=== PATIENT | female | born 1975 | race Caucasian/White ===

== ENCOUNTER 2018-03-26 11:35 | Inpatient (IN) | payer MEDICAID ==
[2018-03-26 11:57] LABS: ADD MAN DIFF? NO
[2018-03-26 12:05] LABS: WHITE BLOOD COUNT 9.6 10^3/ul (4.8-10.8)
[2018-03-26 12:06] LABS: ABNORMAL IP MESSAGE 1; BASOPHILS % 0.4 % (0.0-2.0); EOSINOPHILS # 0.2 10^3/ul (0.0-0.5); EOSINOPHILS % 2.5 % (0.0-7.0); HEMATOCRIT 31.3 % (37.0-47.0); HEMOGLOBIN 9.2 g/dl (12.0-16.0); LYMPHOCYTES # 1.2 10^3/ul (0.8-2.9); LYMPHOCYTES % 12.9 % (15.0-51.0); MEAN CORPUSCULAR HEMOGLOBIN 22.7 pg (29.0-33.0); MEAN CORPUSCULAR HGB CONC 29.4 g/dl (32.0-37.0); MEAN CORPUSCULAR VOLUME 77.1 fl (82.0-101.0); MEAN PLATELET VOLUME 9.9 fl (7.4-10.4); MONOCYTE # 0.8 10^3/ul (0.3-0.9); MONOCYTES % 8.3 % (0.0-11.0); NEUTROPHIL # 7.3 10^3/ul (1.6-7.5); NEUTROPHILS % 75.4 % (39.0-77.0); PLATELET COUNT 258 10^3/UL (140-415); RED BLOOD COUNT 4.06 10^6/ul (4.20-5.40); RED CELL DISTRIBUTION WIDTH 33.4 % (11.5-14.5)
[2018-03-26 12:11] LABS: POSITIVE DIFF @See below
[2018-03-26 12:22] LABS: INR 1.04; PROTIME 13.7 Sec (11.9-14.9); PT RATIO 1.1
[2018-03-26 12:23] LABS: PARTIAL THROMBOPLASTIN TIME 37.6 Sec (23.0-35.0)
[2018-03-26 12:26] LABS: LACTIC ACID 3.1 mmol/L (0.5-2.0)
[2018-03-26 12:31] LABS: ANION GAP 10 (8-16); CARBON DIOXIDE 29 mmol/L (21-31); CHLORIDE 101 mmol/L (97-110); CREATININE 0.44 mg/dl (0.44-1.00); GLUCOSE 98 mg/dl (70-220); POTASSIUM 3.8 mmol/L (3.5-5.1); SODIUM 136 mmol/L (135-144)
[2018-03-26 12:42] LABS: TROPONIN-I < 0.012 ng/ml (0.000-0.120)
[2018-03-26 12:47] LABS: BLOOD UREA NITROGEN 8 mg/dl (7-20)
[2018-03-26] MEDS ORDERED: ACETAMINOPHEN 325 MG TAB PO ×2 (13:30→14:00)
[2018-03-26] MEDS ORDERED: ONDANSETRON 4 MG INJ IV (13:30)
[2018-03-26] MEDS: CEFEPIME 2GM/50 ML (PMX) 50 ML IVPB ×2 (13:37→22:00)
[2018-03-26] MEDS ORDERED: DOCUSATE SODIUM 100 MG CAP PO (14:00)
[2018-03-26] MEDS ORDERED: VANCOMYCIN IV PER PHARMACY XX (14:00)
[2018-03-26] MEDS ORDERED: NACL 0.9% 3 ML SYG IV (14:00)
[2018-03-26] MEDS ORDERED: MAGNESIUM HYDROXIDE 30ML CUP PO (14:00)
[2018-03-26] MEDS ORDERED: BISACODYL 10 MG SUPP PR (14:00)
[2018-03-26] MEDS ORDERED: ACETAMINOPHEN 650 MG SUPP PR (14:00)
[2018-03-26] MEDS: IOHEXOL 100 ML (14:02)
[2018-03-26] MEDS: SOD CHLORIDE 0.9% 100 ML (14:03)
[2018-03-26] MEDS: IOHEXOL 350MG/ML 50 ML BTL (14:04)
[2018-03-26] MEDS: VANCOMYCIN 1 GM (PMX) 250 ML IVPB (14:20)
[2018-03-26 14:29] LABS: LACTIC ACID 1.8 mmol/L (0.5-2.0)
[2018-03-26] MEDS ORDERED: HEPARIN 25000 UNITS/250 ML 250 ML IV (15:30)
[2018-03-26] MEDS: HEPARIN 1000 UNITS/ML 10 ML INJ IV ×2 (16:08→18:33)
[2018-03-26] MEDS: SOD CHLORIDE 0.9% 1,000 ML IV (16:13)
[2018-03-26 16:24] LABS: ADD MAN DIFF? NO
[2018-03-26 16:27] LABS: WHITE BLOOD COUNT 9.8 10^3/ul (4.8-10.8)
[2018-03-26 16:27] LABS: ABNORMAL IP MESSAGE 1; BASOPHILS % 0.4 % (0.0-2.0); EOSINOPHILS # 0.2 10^3/ul (0.0-0.5); EOSINOPHILS % 2.5 % (0.0-7.0); HEMATOCRIT 31.2 % (37.0-47.0); LYMPHOCYTES # 1.2 10^3/ul (0.8-2.9); LYMPHOCYTES % 12.5 % (15.0-51.0); MEAN CORPUSCULAR HEMOGLOBIN 22.6 pg (29.0-33.0); MEAN CORPUSCULAR HGB CONC 28.8 g/dl (32.0-37.0); MEAN CORPUSCULAR VOLUME 78.4 fl (82.0-101.0); MEAN PLATELET VOLUME 10.3 fl (7.4-10.4); MONOCYTE # 0.8 10^3/ul (0.3-0.9); MONOCYTES % 8.4 % (0.0-11.0); NEUTROPHIL # 7.4 10^3/ul (1.6-7.5); PLATELET COUNT 234 10^3/UL (140-415); RED BLOOD COUNT 3.98 10^6/ul (4.20-5.40); RED CELL DISTRIBUTION WIDTH 33.7 % (11.5-14.5)
[2018-03-26 16:37] LABS: POSITIVE DIFF @See below
[2018-03-26] MEDS: HEPARIN 25000 UNITS/250 ML 250 ML IV ×2 (16:38→18:31)
[2018-03-26 16:46] LABS: INR 1.04; PROTIME 13.7 Sec (11.9-14.9); PT RATIO 1.1
[2018-03-26 16:47] LABS: PARTIAL THROMBOPLASTIN TIME 32.8 Sec (23.0-35.0)
[2018-03-26 17:04] LABS: LACTIC ACID 2.5 mmol/L (0.5-2.0)
[2018-03-26] MEDS: VANCOMYCIN 1 GM 250 ML IVPB (18:48)
[2018-03-26 22:17] LABS: ADD UMIC NO; UR ASCORBIC ACID NEGATIVE (NEGATIVE); UR BILIRUBIN (Dip) NEGATIVE (NEGATIVE); UR BLOOD (Dip) NEGATIVE (NEGATIVE); UR CLARITY CLEAR (CLEAR); UR COLOR YELLOW (YELLOW); UR GLUCOSE (Dip) NEGATIVE (NEGATIVE); UR KETONES (Dip) NEGATIVE (NEGATIVE); UR LEUKOCYTE ESTERASE (Dip) NEGATIVE Leu/ul (NEGATIVE); UR NITRITE (Dip) NEGATIVE (NEGATIVE); UR SPECIFIC GRAVITY (Dip) 1.034 (1.003-1.030); UR TOTAL PROTEIN (Dip) NEGATIVE (NEGATIVE); UR UROBILINOGEN (Dip) NEGATIVE (NEGATIVE)
[2018-03-26 22:26] LABS: LACTIC ACID 1.7 mmol/L (0.5-2.0)
[2018-03-27 01:20] LABS: LACTIC ACID 1.8 mmol/L (0.5-2.0)
[2018-03-27] MEDS: VANCOMYCIN 1.5 GM in SOD CHLORIDE 0.9% 250 ML IVPB (01:38)
[2018-03-27 01:43] LABS: PARTIAL THROMBOPLASTIN TIME > 180.0 Sec (23.0-35.0)
[2018-03-27] MEDS: HEPARIN 25000 UNITS/250 ML 250 ML IV ×3 (01:56→21:27)
[2018-03-27 04:28] LABS: PARTIAL THROMBOPLASTIN TIME 115.1 Sec (23.0-35.0)
[2018-03-27] MEDS: PANTOPRAZOLE 40 MG INJ IV (06:52)
[2018-03-27] MEDS: CEFEPIME 2GM/50 ML (PMX) 50 ML IVPB (06:53)
[2018-03-27 07:11] LABS: ADD MAN DIFF? NO
[2018-03-27 07:21] LABS: ABNORMAL IP MESSAGE 1; BASOPHILS % 0.5 % (0.0-2.0); EOSINOPHILS # 0.2 10^3/ul (0.0-0.5); HEMATOCRIT 26.8 % (37.0-47.0); HEMOGLOBIN 7.9 g/dl (12.0-16.0); LYMPHOCYTES # 1.3 10^3/ul (0.8-2.9); LYMPHOCYTES % 15.5 % (15.0-51.0); MEAN CORPUSCULAR HEMOGLOBIN 22.6 pg (29.0-33.0); MEAN CORPUSCULAR HGB CONC 29.5 g/dl (32.0-37.0); MEAN CORPUSCULAR VOLUME 76.8 fl (82.0-101.0); MEAN PLATELET VOLUME 9.8 fl (7.4-10.4); MONOCYTE # 0.8 10^3/ul (0.3-0.9); MONOCYTES % 9.5 % (0.0-11.0); NEUTROPHIL # 5.7 10^3/ul (1.6-7.5); NEUTROPHILS % 71.1 % (39.0-77.0); PLATELET COUNT 171 10^3/UL (140-415); RED BLOOD COUNT 3.49 10^6/ul (4.20-5.40)
[2018-03-27 07:26] LABS: PARTIAL THROMBOPLASTIN TIME 44.1 Sec (23.0-35.0)
[2018-03-27 07:32] LABS: POSITIVE DIFF @See below
[2018-03-27 07:38] LABS: HEMOGLOBIN A1C 5.4 % (0-5.9)
[2018-03-27] MEDS: HYDROCODONE/APAP (5/325) TAB PO ×3 (07:48→21:34)
[2018-03-27 07:49] LABS: ALANINE AMINOTRANSFERASE 21 IU/L (13-69); ALBUMIN 2.2 g/dl (3.3-4.9); ALBUMIN/GLOBULIN RATIO 0.73; ALKALINE PHOSPHATASE 96 IU/L (42-121); ANION GAP 7 (8-16); ASPARTATE AMINO TRANSFERASE 22 IU/L (15-46); BILIRUBIN,INDIRECT 0.2 mg/dl (0-1.1); BILIRUBIN,TOTAL 0.2 mg/dl (0.2-1.3); BLOOD UREA NITROGEN 5 mg/dl (7-20); CALCIUM 7.3 mg/dl (8.4-10.2); CARBON DIOXIDE 28 mmol/L (21-31); CHLORIDE 105 mmol/L (97-110); CREATININE 0.37 mg/dl (0.44-1.00); GLUCOSE 90 mg/dl (70-220); HDL CHOLESTEROL 23 mg/dl (34-88); IRON 23 ug/dl (35-150); MAGNESIUM 1.5 mg/dl (1.7-2.5); PHOSPHORUS 3.1 mg/dl (2.5-4.9); POTASSIUM 3.4 mmol/L (3.5-5.1); SODIUM 137 mmol/L (135-144); TOTAL PROTEIN 5.2 g/dl (6.1-8.1); TRIGLYCERIDES 89 mg/dl (0-149)
[2018-03-27 07:52] LABS: CHOLESTEROL < 50 mg/dl (100-200)
[2018-03-27 07:59] LABS: % IRON SATURATION 11 % SAT (22-52); TOTAL IRON BINDING CAPACITY 215 ug/dl (241-421)
[2018-03-27] MEDS: SOD CHLORIDE 0.9% 1,000 ML IV ×4 (08:06→21:16)
[2018-03-27 08:47] LABS: FREE THYROXINE INDEX (Calc) 1.75 ug/ml (0.65-3.89); T3 UPTAKE 42.6 % (23.5-40.5); T4 (THYROXINE) 4.1 ug/dl (5.5-11.0)
[2018-03-27] MEDS: ONDANSETRON 4 MG INJ IV ×2 (09:24→14:00)
[2018-03-27] MEDS ORDERED: VITAMIN A & D 5 GM OINT PACKET TOP (11:39)
[2018-03-27] MEDS: POTASSIUM CHLORIDE 20 MEQ POWDER FOR ORAL SOLN PO (11:41)
[2018-03-27] MEDS: MAGNESIUM SULFATE 2 GM/50 ML 50 ML IVPB (11:41)
[2018-03-27 12:52] LABS: PARTIAL THROMBOPLASTIN TIME 98.3 Sec (23.0-35.0)
[2018-03-27] MEDS ORDERED: VANCOMYCIN 1.5 GM in SOD CHLORIDE 0.9% 250 ML IVPB (13:00)
[2018-03-27] MEDS: LIDOCAINE 1% (MPF) 5 ML VIAL SC (14:30)
[2018-03-27] MEDS: LORAZEPAM 1 MG TAB PO ×2 (15:46→23:52)
[2018-03-27] MEDS: SOD FERRIC GLUC COMPLX 125 MG in SOD CHLORIDE 0.9% 100 ML IVPB (18:14)
[2018-03-27] MEDS: EPOETIN 10000 UNITS/ML (NON ESRD/NON ONCOLOGY) SC (18:18)
[2018-03-27 19:02] LABS: PARTIAL THROMBOPLASTIN TIME 82.6 Sec (23.0-35.0)
[2018-03-27] MEDS: GUAIFENESIN/DM 5ML CUP PO (21:34)
[2018-03-27] MEDS: ALBUTEROL/IPRATROPIUM (NEB) 3 ML AMP HHN (23:43)
[2018-03-28] MEDS: PANTOPRAZOLE 40 MG INJ IV (05:45)
[2018-03-28] MEDS: HYDROCODONE/APAP (5/325) TAB PO ×2 (06:39→13:59)
[2018-03-28] MEDS: GUAIFENESIN/DM 5ML CUP PO ×3 (06:39→20:46)
[2018-03-28] MEDS: ONDANSETRON 4 MG INJ IV ×2 (09:00→19:45)
[2018-03-28] MEDS: LORAZEPAM 1 MG TAB PO ×2 (09:00→23:51)
[2018-03-28] MEDS: ALBUTEROL/IPRATROPIUM (NEB) 3 ML AMP HHN ×3 (09:05→20:06)
[2018-03-28 10:52] LABS: ADD MAN DIFF? NO
[2018-03-28 10:55] LABS: ABNORMAL IP MESSAGE 1; BASOPHILS % 0.3 % (0.0-2.0); EOSINOPHILS # 0.3 10^3/ul (0.0-0.5); EOSINOPHILS % 3.3 % (0.0-7.0); HEMATOCRIT 27.2 % (37.0-47.0); HEMOGLOBIN 7.8 g/dl (12.0-16.0); LYMPHOCYTES # 1.2 10^3/ul (0.8-2.9); LYMPHOCYTES % 14.7 % (15.0-51.0); MEAN CORPUSCULAR HEMOGLOBIN 22.9 pg (29.0-33.0); MEAN CORPUSCULAR HGB CONC 28.7 g/dl (32.0-37.0); MEAN CORPUSCULAR VOLUME 79.8 fl (82.0-101.0); MEAN PLATELET VOLUME 10.1 fl (7.4-10.4); MONOCYTE # 0.7 10^3/ul (0.3-0.9); NEUTROPHIL # 5.8 10^3/ul (1.6-7.5); NEUTROPHILS % 72.3 % (39.0-77.0); PLATELET COUNT 175 10^3/UL (140-415); RED BLOOD COUNT 3.41 10^6/ul (4.20-5.40); RED CELL DISTRIBUTION WIDTH 33.9 % (11.5-14.5)
[2018-03-28 10:57] LABS: POSITIVE DIFF @See below
[2018-03-28 11:13] LABS: ALANINE AMINOTRANSFERASE 29 IU/L (13-69); ALBUMIN 1.9 g/dl (3.3-4.9); ALBUMIN/GLOBULIN RATIO 0.61; ALKALINE PHOSPHATASE 85 IU/L (42-121); ANION GAP 8 (8-16); ASPARTATE AMINO TRANSFERASE 20 IU/L (15-46); BILIRUBIN,INDIRECT 0.2 mg/dl (0-1.1); BILIRUBIN,TOTAL 0.2 mg/dl (0.2-1.3); BLOOD UREA NITROGEN 5 mg/dl (7-20); CALCIUM 7.4 mg/dl (8.4-10.2); CARBON DIOXIDE 28 mmol/L (21-31); CHLORIDE 105 mmol/L (97-110); CREATININE 0.41 mg/dl (0.44-1.00); GLUCOSE 142 mg/dl (70-220); POTASSIUM 3.5 mmol/L (3.5-5.1); SODIUM 137 mmol/L (135-144)
[2018-03-28 11:25] LABS: PARTIAL THROMBOPLASTIN TIME 123.1 Sec (23.0-35.0)
[2018-03-28] MEDS: HEPARIN 25000 UNITS/250 ML 250 ML IV ×2 (12:16→19:48)
[2018-03-28 13:56] LABS: ANA SCREEN NEGATIVE (NEGATIVE)
[2018-03-28] MEDS: CASPOFUNGIN 70 MG in SOD CHLORIDE 0.9% 250 ML IVPB (14:53)
[2018-03-28 15:54] LABS: LACTIC ACID 2.3 mmol/L (0.5-2.0)
[2018-03-28] MEDS: FUROSEMIDE 40 MG INJ IV (16:15)
[2018-03-28] MEDS: HYDROmorphONE 1 MG/ML SYG IV ×2 (16:15→20:41)
[2018-03-28] MEDS: SOD FERRIC GLUC COMPLX 125 MG in SOD CHLORIDE 0.9% 100 ML IVPB (17:42)
[2018-03-28 19:02] LABS: PARTIAL THROMBOPLASTIN TIME 108.4 Sec (23.0-35.0)
[2018-03-28] MEDS: BUDESONIDE (NEB) 0.5MG/2ML AMP HHN (20:06)
[2018-03-29] MEDS: ALBUTEROL/IPRATROPIUM (NEB) 3 ML AMP HHN ×4 (01:32→19:36)
[2018-03-29] MEDS: HEPARIN 25000 UNITS/250 ML 250 ML IV ×4 (01:37→22:31)
[2018-03-29] MEDS: GUAIFENESIN/DM 5ML CUP PO ×3 (02:06→10:44)
[2018-03-29] MEDS: HYDROmorphONE 1 MG/ML SYG IV ×4 (02:06→17:14)
[2018-03-29 03:45] LABS: PARTIAL THROMBOPLASTIN TIME > 180.0 Sec (23.0-35.0)
[2018-03-29] MEDS: PANTOPRAZOLE 40 MG INJ IV (06:00)
[2018-03-29 06:54] LABS: ADD MAN DIFF? NO
[2018-03-29 06:58] LABS: ABNORMAL IP MESSAGE 1; BASOPHILS % 0.4 % (0.0-2.0); EOSINOPHILS # 0.3 10^3/ul (0.0-0.5); EOSINOPHILS % 3.9 % (0.0-7.0); HEMATOCRIT 27.3 % (37.0-47.0); HEMOGLOBIN 7.7 g/dl (12.0-16.0); LYMPHOCYTES # 1.3 10^3/ul (0.8-2.9); LYMPHOCYTES % 15.2 % (15.0-51.0); MEAN CORPUSCULAR HEMOGLOBIN 22.4 pg (29.0-33.0); MEAN CORPUSCULAR HGB CONC 28.2 g/dl (32.0-37.0); MEAN CORPUSCULAR VOLUME 79.4 fl (82.0-101.0); MEAN PLATELET VOLUME 9.8 fl (7.4-10.4); MONOCYTE # 0.9 10^3/ul (0.3-0.9); MONOCYTES % 10.3 % (0.0-11.0); NEUTROPHIL # 5.9 10^3/ul (1.6-7.5); NEUTROPHILS % 69.7 % (39.0-77.0); PLATELET COUNT 188 10^3/UL (140-415); RED BLOOD COUNT 3.44 10^6/ul (4.20-5.40)
[2018-03-29 06:58] LABS: WHITE BLOOD COUNT 8.4 10^3/ul (4.8-10.8)
[2018-03-29 07:16] LABS: POSITIVE DIFF @See below
[2018-03-29 07:18] LABS: ANION GAP 7 (8-16); BLOOD UREA NITROGEN 6 mg/dl (7-20); CALCIUM 7.8 mg/dl (8.4-10.2); CARBON DIOXIDE 30 mmol/L (21-31); CHLORIDE 103 mmol/L (97-110); CREATININE 0.41 mg/dl (0.44-1.00); GLUCOSE 103 mg/dl (70-220); POTASSIUM 3.4 mmol/L (3.5-5.1); SODIUM 137 mmol/L (135-144)
[2018-03-29 07:20] LABS: PARTIAL THROMBOPLASTIN TIME 43.9 Sec (23.0-35.0)
[2018-03-29] MEDS: FUROSEMIDE 40 MG INJ IV (08:29)
[2018-03-29] MEDS: ONDANSETRON 4 MG INJ IV ×3 (08:44→17:29)
[2018-03-29] MEDS: BUDESONIDE (NEB) 0.5MG/2ML AMP HHN ×2 (09:00→19:36)
[2018-03-29 10:01] LABS: HEXAGONAL PHASE CONFIRMATION WEAKLY POSITIVE (NEGATIVE); THROMBIN CLOTTING TIME 18 sec (13-19)
[2018-03-29] MEDS: LEVOTHYROXINE 112 MCG TAB PO (10:44)
[2018-03-29 14:14] LABS: PARTIAL THROMBOPLASTIN TIME 48.3 Sec (23.0-35.0)
[2018-03-29] MEDS: HEPARIN 1000 UNITS/ML 10 ML INJ IV (14:40)
[2018-03-29] MEDS: CASPOFUNGIN 50 MG in SOD CHLORIDE 0.9% 250 ML IVPB (15:11)
[2018-03-29] MEDS: SOD FERRIC GLUC COMPLX 125 MG in SOD CHLORIDE 0.9% 100 ML IVPB (16:47)
[2018-03-29] MEDS: LORAZEPAM 1 MG TAB PO (22:08)
[2018-03-29 23:12] LABS: PARTIAL THROMBOPLASTIN TIME 92.4 Sec (23.0-35.0)
[2018-03-30] MEDS: HYDROmorphONE 1 MG/ML SYG IV ×3 (00:22→13:15)
[2018-03-30] MEDS: GUAIFENESIN/DM 5ML CUP PO ×3 (01:00→22:29)
[2018-03-30] MEDS: ALBUTEROL/IPRATROPIUM (NEB) 3 ML AMP HHN ×4 (01:55→19:55)
[2018-03-30 06:22] LABS: WHITE BLOOD COUNT 7.9 10^3/ul (4.8-10.8)
[2018-03-30 06:22] LABS: ABNORMAL IP MESSAGE 1; HEMATOCRIT 27.8 % (37.0-47.0); HEMOGLOBIN 7.9 g/dl (12.0-16.0); MEAN CORPUSCULAR HEMOGLOBIN 22.8 pg (29.0-33.0); MEAN CORPUSCULAR HGB CONC 28.4 g/dl (32.0-37.0); MEAN CORPUSCULAR VOLUME 80.1 fl (82.0-101.0); MEAN PLATELET VOLUME 9.7 fl (7.4-10.4); PLATELET COUNT 224 10^3/UL (140-415); RED BLOOD COUNT 3.47 10^6/ul (4.20-5.40); RETICULOCYTE COUNT # 0.125 X10^6 (0.020-0.110); RETICULOCYTE COUNT % 3.6 % (0.5-1.5); RETICULOCYTE RBC 3.47
[2018-03-30 06:27] LABS: ADD MAN DIFF? YES; POSITIVE DIFF @See below
[2018-03-30] MEDS: LEVOTHYROXINE 112 MCG TAB PO (06:32)
[2018-03-30] MEDS: PANTOPRAZOLE 40 MG INJ IV (06:32)
[2018-03-30 06:59] LABS: ALANINE AMINOTRANSFERASE 27 IU/L (13-69); ALBUMIN 2.1 g/dl (3.3-4.9); ALBUMIN/GLOBULIN RATIO 0.63; ALKALINE PHOSPHATASE 91 IU/L (42-121); ANION GAP 6 (8-16); ASPARTATE AMINO TRANSFERASE 20 IU/L (15-46); BILIRUBIN,INDIRECT 0.2 mg/dl (0-1.1); BILIRUBIN,TOTAL 0.2 mg/dl (0.2-1.3); BLOOD UREA NITROGEN 6 mg/dl (7-20); CALCIUM 8.1 mg/dl (8.4-10.2); CARBON DIOXIDE 33 mmol/L (21-31); CHLORIDE 102 mmol/L (97-110); CREATININE 0.47 mg/dl (0.44-1.00); GLUCOSE 99 mg/dl (70-220); LIPASE 94 U/L (23-300); POTASSIUM 3.4 mmol/L (3.5-5.1); SODIUM 138 mmol/L (135-144); TOTAL PROTEIN 5.4 g/dl (6.1-8.1)
[2018-03-30 07:19] LABS: PARTIAL THROMBOPLASTIN TIME 96.9 Sec (23.0-35.0)
[2018-03-30] MEDS: BUDESONIDE (NEB) 0.5MG/2ML AMP HHN ×2 (07:56→19:56)
[2018-03-30 08:29] LABS: CANCER ANTIGEN 19-9 < 1.4 U/ml (0.0-37.0)
[2018-03-30 08:35] LABS: ANISOCYTOSIS 2+ (0-0); BAND NEUTROPHILS % (M) 1 % (0-4); BASOPHIL #M 0.1 10^3/ul (0.0-0.0); BASOPHILS % (M) 2 % (0-2); EOSINOPHILS % (M) 4 % (0-7); LYMPHOCYTES #M 1.4 10^3/ul (0.8-2.9); LYMPHOCYTES % (M) 18 % (15-51); MICROCYTOSIS 1+ (0-0); MONOCYTE #M 0.4 10^3/ul (0.3-0.9); MONOCYTES % (M) 6 % (0-11); PLATELET ESTIMATE NORMAL; POLYCHROMASIA 1+ (0-0); REACTIVE LYMPHOCYTES #M 0.3 10^3/ul (0.0-0.0); REACTIVE LYMPHOCYTES% (M) 4 % (0-0); SEG NEUT #M 5.1 10^3/ul (1.6-7.5); SEGMENTED NEUTROPHILS (M) % 65 % (39-77); SMUDGE%M 50 % (0-0); SPHEROCYTES 1+ (0-0); TARGET CELLS 1+ (0-0)
[2018-03-30] MEDS: FUROSEMIDE 40 MG INJ IV ×2 (09:40→18:48)
[2018-03-30] MEDS: LORAZEPAM 1 MG TAB PO (11:36)
[2018-03-30] MEDS: POTASSIUM CHLORIDE (SR) 20 MEQ TAB PO (12:24)
[2018-03-30] MEDS: HEPARIN 25000 UNITS/250 ML 250 ML IV (14:31)
[2018-03-30 14:50] LABS: PARTIAL THROMBOPLASTIN TIME 70.2 Sec (23.0-35.0)
[2018-03-30] MEDS: EPOETIN 10000 UNITS/ML (NON ESRD/NON ONCOLOGY) SC (17:51)
[2018-03-30] MEDS: SOD FERRIC GLUC COMPLX 125 MG in SOD CHLORIDE 0.9% 100 ML IVPB (17:51)
[2018-03-30] MEDS: HYDROmorphONE 2 MG TAB PO ×2 (17:57→22:30)
[2018-03-30 23:57] LABS: ERYTHROPOIETIN 104.6 mIU/mL (2.6-18.5)
[2018-03-31] MEDS: LORAZEPAM 1 MG TAB PO ×2 (00:57→23:06)
[2018-03-31] MEDS: ALBUTEROL/IPRATROPIUM (NEB) 3 ML AMP HHN ×5 (02:00→19:42)
[2018-03-31] MEDS: HYDROmorphONE 2 MG TAB PO ×3 (04:42→22:11)
[2018-03-31] MEDS: PANTOPRAZOLE (EC) 40 MG TAB PO (05:26)
[2018-03-31] MEDS: LEVOTHYROXINE 112 MCG TAB PO (05:26)
[2018-03-31] MEDS: HEPARIN 25000 UNITS/250 ML 250 ML IV ×3 (05:35→17:25)
[2018-03-31 06:08] LABS: ADD MAN DIFF? NO
[2018-03-31 06:16] LABS: WHITE BLOOD COUNT 7.4 10^3/ul (4.8-10.8)
[2018-03-31 06:16] LABS: ABNORMAL IP MESSAGE 1; BASOPHILS % 0.4 % (0.0-2.0); EOSINOPHILS # 0.4 10^3/ul (0.0-0.5); EOSINOPHILS % 5.1 % (0.0-7.0); HEMATOCRIT 26.3 % (37.0-47.0); HEMOGLOBIN 7.4 g/dl (12.0-16.0); LYMPHOCYTES # 1.4 10^3/ul (0.8-2.9); LYMPHOCYTES % 18.8 % (15.0-51.0); MEAN CORPUSCULAR HEMOGLOBIN 22.9 pg (29.0-33.0); MEAN CORPUSCULAR HGB CONC 28.1 g/dl (32.0-37.0); MEAN CORPUSCULAR VOLUME 81.4 fl (82.0-101.0); MEAN PLATELET VOLUME 10.1 fl (7.4-10.4); MONOCYTE # 0.8 10^3/ul (0.3-0.9); NEUTROPHIL # 4.8 10^3/ul (1.6-7.5); PLATELET COUNT 254 10^3/UL (140-415); RED BLOOD COUNT 3.23 10^6/ul (4.20-5.40); RED CELL DISTRIBUTION WIDTH 34.5 % (11.5-14.5)
[2018-03-31 06:25] LABS: POSITIVE DIFF @See below
[2018-03-31 06:50] LABS: ANION GAP 8 (8-16); BLOOD UREA NITROGEN 5 mg/dl (7-20); CALCIUM 8.1 mg/dl (8.4-10.2); CARBON DIOXIDE 32 mmol/L (21-31); CHLORIDE 100 mmol/L (97-110); CREATININE 0.43 mg/dl (0.44-1.00); GLUCOSE 138 mg/dl (70-220); MAGNESIUM 1.7 mg/dl (1.7-2.5); PHOSPHORUS 3.7 mg/dl (2.5-4.9); POTASSIUM 3.3 mmol/L (3.5-5.1); SODIUM 137 mmol/L (135-144)
[2018-03-31 07:05] LABS: PARTIAL THROMBOPLASTIN TIME > 180.0 Sec (23.0-35.0)
[2018-03-31] MEDS: BUDESONIDE (NEB) 0.5MG/2ML AMP HHN ×2 (08:02→19:42)
[2018-03-31] MEDS: FUROSEMIDE 40 MG INJ IV (09:14)
[2018-03-31 10:49] LABS: PARTIAL THROMBOPLASTIN TIME 39.6 Sec (23.0-35.0)
[2018-03-31] MEDS: POTASSIUM CHLORIDE (SR) 10 MEQ TAB PO (16:13)
[2018-03-31] MEDS: SOD FERRIC GLUC COMPLX 125 MG in SOD CHLORIDE 0.9% 100 ML IVPB (16:14)
[2018-03-31 16:55] LABS: PARTIAL THROMBOPLASTIN TIME 50.3 Sec (23.0-35.0)
[2018-03-31] MEDS: HEPARIN 1000 UNITS/ML 10 ML INJ IV (17:43)
[2018-03-31] MEDS ORDERED: HEPARIN 1000 UNITS/ML 10 ML INJ IV (18:00)
[2018-04-01 00:08] LABS: PARTIAL THROMBOPLASTIN TIME 137.6 Sec (23.0-35.0)
[2018-04-01 00:43] LABS: CANCER ANTIGEN 15-3 22 U/mL (<32)
[2018-04-01] MEDS: ALBUTEROL/IPRATROPIUM (NEB) 3 ML AMP HHN ×3 (02:00→13:36)
[2018-04-01] MEDS: HEPARIN 25000 UNITS/250 ML 250 ML IV ×3 (03:47→21:48)
[2018-04-01] MEDS: LEVOTHYROXINE 112 MCG TAB PO (05:39)
[2018-04-01] MEDS: PANTOPRAZOLE (EC) 40 MG TAB PO (05:40)
[2018-04-01] MEDS: HYDROmorphONE 2 MG TAB PO ×3 (05:40→18:57)
[2018-04-01 06:48] LABS: PARTIAL THROMBOPLASTIN TIME 63.2 Sec (23.0-35.0)
[2018-04-01] MEDS: BUDESONIDE (NEB) 0.5MG/2ML AMP HHN (09:00)
[2018-04-01] MEDS: FUROSEMIDE 40 MG INJ IV (10:01)
[2018-04-01] MEDS: POTASSIUM CHLORIDE (SR) 20 MEQ TAB PO (13:32)
[2018-04-01] MEDS: MAGNESIUM SULFATE 2 GM/50 ML 50 ML IVPB (13:33)
[2018-04-01] MEDS ORDERED: ALBUTEROL HFA 8 GM INHALER INH (14:30)
[2018-04-01 14:47] LABS: PARTIAL THROMBOPLASTIN TIME > 180.0 Sec (23.0-35.0)
[2018-04-01 17:22] LABS: PARTIAL THROMBOPLASTIN TIME 37.4 Sec (23.0-35.0)
[2018-04-01] MEDS: EPOETIN 10000 UNITS/ML (NON ESRD/NON ONCOLOGY) SC (17:37)
[2018-04-01] MEDS: HEPARIN 1000 UNITS/ML 10 ML INJ IV (17:43)
[2018-04-01] MEDS: ALBUTEROL HFA 8 GM INHALER INH (21:43)
[2018-04-02] MEDS: LORAZEPAM 1 MG TAB PO (00:28)
[2018-04-02 01:52] LABS: PARTIAL THROMBOPLASTIN TIME > 180.0 Sec (23.0-35.0)
[2018-04-02 04:11] LABS: ADD MAN DIFF? NO
[2018-04-02 04:14] LABS: WHITE BLOOD COUNT 8.3 10^3/ul (4.8-10.8)
[2018-04-02 04:14] LABS: ABNORMAL IP MESSAGE 1; BASOPHILS % 0.5 % (0.0-2.0); EOSINOPHILS # 0.4 10^3/ul (0.0-0.5); HEMATOCRIT 27.5 % (37.0-47.0); HEMOGLOBIN 7.9 g/dl (12.0-16.0); LYMPHOCYTES # 1.3 10^3/ul (0.8-2.9); LYMPHOCYTES % 15.9 % (15.0-51.0); MEAN CORPUSCULAR HEMOGLOBIN 23.7 pg (29.0-33.0); MEAN CORPUSCULAR HGB CONC 28.7 g/dl (32.0-37.0); MEAN CORPUSCULAR VOLUME 82.3 fl (82.0-101.0); MEAN PLATELET VOLUME 9.4 fl (7.4-10.4); MONOCYTE # 0.9 10^3/ul (0.3-0.9); NEUTROPHIL # 5.5 10^3/ul (1.6-7.5); NEUTROPHILS % 66.5 % (39.0-77.0); PLATELET COUNT 303 10^3/UL (140-415); RED BLOOD COUNT 3.34 10^6/ul (4.20-5.40); RED CELL DISTRIBUTION WIDTH 34.3 % (11.5-14.5)
[2018-04-02 04:17] LABS: POSITIVE DIFF @See below
[2018-04-02 04:18] LABS: RETICULOCYTE COUNT # 0.158 X10^6 (0.020-0.110); RETICULOCYTE COUNT % 4.6 % (0.5-1.5)
[2018-04-02 04:33] LABS: PHOSPHORUS 3.7 mg/dl (2.5-4.9)
[2018-04-02 04:33] LABS: ANION GAP 5 (8-16); BLOOD UREA NITROGEN 5 mg/dl (7-20); CALCIUM 8.3 mg/dl (8.4-10.2); CARBON DIOXIDE 36 mmol/L (21-31); CHLORIDE 100 mmol/L (97-110); CREATININE 0.38 mg/dl (0.44-1.00); GLUCOSE 109 mg/dl (70-220); MAGNESIUM 1.9 mg/dl (1.7-2.5); POTASSIUM 3.8 mmol/L (3.5-5.1); SODIUM 137 mmol/L (135-144)
[2018-04-02 04:35] LABS: PARTIAL THROMBOPLASTIN TIME 39.1 Sec (23.0-35.0)
[2018-04-02] MEDS: HYDROmorphONE 2 MG TAB PO ×3 (06:22→20:25)
[2018-04-02] MEDS: PANTOPRAZOLE (EC) 40 MG TAB PO (06:23)
[2018-04-02] MEDS: LEVOTHYROXINE 112 MCG TAB PO (06:23)
[2018-04-02] MEDS: FUROSEMIDE 40 MG INJ IV (08:24)
[2018-04-02 10:11] LABS: PARTIAL THROMBOPLASTIN TIME 58.7 Sec (23.0-35.0)
[2018-04-02] MEDS: HEPARIN 25000 UNITS/250 ML 250 ML IV ×2 (11:33→13:33)
[2018-04-02] MEDS: ALBUTEROL HFA 8 GM INHALER INH ×3 (13:38→20:27)
[2018-04-02 19:00] LABS: PARTIAL THROMBOPLASTIN TIME 82.8 Sec (23.0-35.0)
[2018-04-02] MEDS: APIXABAN 5 MG TABLET PO (20:25)
[2018-04-03] MEDS: LORAZEPAM 1 MG TAB PO ×2 (00:12→12:36)
[2018-04-03] MEDS: HYDROmorphONE 2 MG TAB PO ×2 (05:58→15:19)
[2018-04-03] MEDS: LEVOTHYROXINE 112 MCG TAB PO (05:58)
[2018-04-03] MEDS: PANTOPRAZOLE (EC) 40 MG TAB PO (05:58)
[2018-04-03 06:13] LABS: ADD MAN DIFF? NO
[2018-04-03 06:21] LABS: WHITE BLOOD COUNT 7.8 10^3/ul (4.8-10.8)
[2018-04-03 06:21] LABS: ABNORMAL IP MESSAGE 1; BASOPHILS % 0.5 % (0.0-2.0); EOSINOPHILS # 0.4 10^3/ul (0.0-0.5); EOSINOPHILS % 4.6 % (0.0-7.0); HEMATOCRIT 26.2 % (37.0-47.0); HEMOGLOBIN 7.4 g/dl (12.0-16.0); LYMPHOCYTES # 1.4 10^3/ul (0.8-2.9); LYMPHOCYTES % 18.2 % (15.0-51.0); MEAN CORPUSCULAR HEMOGLOBIN 23.6 pg (29.0-33.0); MEAN CORPUSCULAR HGB CONC 28.2 g/dl (32.0-37.0); MEAN CORPUSCULAR VOLUME 83.7 fl (82.0-101.0); MEAN PLATELET VOLUME 9.7 fl (7.4-10.4); MONOCYTES % 12.5 % (0.0-11.0); NEUTROPHIL # 4.9 10^3/ul (1.6-7.5); NEUTROPHILS % 63.2 % (39.0-77.0); PLATELET COUNT 335 10^3/UL (140-415); RED BLOOD COUNT 3.13 10^6/ul (4.20-5.40)
[2018-04-03 06:26] LABS: POSITIVE DIFF @See below
[2018-04-03 06:34] LABS: PHOSPHORUS 4.2 mg/dl (2.5-4.9)
[2018-04-03 06:34] LABS: MAGNESIUM 1.8 mg/dl (1.7-2.5)
[2018-04-03 06:35] LABS: ANION GAP 8 (8-16); BLOOD UREA NITROGEN 6 mg/dl (7-20); CALCIUM 8.4 mg/dl (8.4-10.2); CARBON DIOXIDE 37 mmol/L (21-31); CHLORIDE 97 mmol/L (97-110); CREATININE 0.42 mg/dl (0.44-1.00); GLUCOSE 104 mg/dl (70-220); POTASSIUM 3.5 mmol/L (3.5-5.1); SODIUM 138 mmol/L (135-144)
[2018-04-03] MEDS: FUROSEMIDE 40 MG INJ IV (08:16)
[2018-04-03] MEDS: APIXABAN 5 MG TABLET PO (08:16)
[2018-04-03] MEDS: ALBUTEROL HFA 8 GM INHALER INH ×2 (08:17→13:06)
[2018-04-03] MEDS: EPOETIN 10000 UNITS/ML (NON ESRD/NON ONCOLOGY) SC (16:55)
== END 2018-04-03 19:23 | disposition home health service (06) | DRG 175 ==
LOC: E/R 11:35 → TEL 13:28
PROVIDERS: Hospitalist
PROC: 02HV33Z Insertion of Infusion Device into Superior Vena Cava, Percutaneous Approach (ICD-10-PCS; principal; 2018-03-27)
DX: I26.99 Other pulmonary embolism without acute cor pulmonale (principal); J96.01 Acute respiratory failure with hypoxia; Z68.44 Body mass index [BMI] 60.0-69.9, adult; J90 Pleural effusion, not elsewhere classified; R18.8 Other ascites; E87.2 Acidosis; D68.59 Other primary thrombophilia; E66.01 Morbid (severe) obesity due to excess calories; D50.9 Iron deficiency anemia, unspecified; E03.9 Hypothyroidism, unspecified; K76.0 Fatty (change of) liver, not elsewhere classified; R53.81 Other malaise; R19.09 Other intra-abdominal and pelvic swelling, mass and lump; Z86.711 Personal history of pulmonary embolism; Z86.74 Personal history of sudden cardiac arrest; Z87.01 Personal history of pneumonia (recurrent)
CPT/HCPCS: 36415; 36569; 71045; 71275; 74150; 76937; 80048; 80053; 80061; 81003; 81240; 82668; 82728; 83036; 83090; 83540; 83605; 83690; 83735; 83890; 84100; 84436; 84443; 84479; 84484; 85025; 85045; 85240; 85300; 85302; 85305; 85610; 85613; 85730; 86038; 86147; 86300; 86301; 86304; 86305; 87040; 87086; 93005; 93306; 93970; 94640; 94664; 97110; 97116; 97162; 97530; 99291-25